=== PATIENT | male | born 1960 | race Caucasian/White ===

== ENCOUNTER → 2019-09-18 | Outpatient (CLI) | payer MEDICARE ==
--- NOTE | 2019-09-18 11:22 | ER RDC ASSESSMENT REPORT ---
Intake - In the Last 14 days Have you traveled outside [place]?: No Have you been in close contact with someone CONFIRMED: No Worked in Healthcare?: No - Symptoms Subjective Fever([place] feverish): Yes Chills: Yes Muscule Aches: Yes Runny Nose: Yes Sore Throat: Yes Cough (New or worsening chronic cough): Yes Shortness of breath: Yes Nausea or Vomiting: No Headache: Yes Abdominal Pain: No Diarrhea(3 or more loose stools in last 24 hours): Yes - Do you have any of the following Chronic lung disease: Asthma or emphysema or COPD: No Cystic Fibrosis: No Diabetes Comment: Borderline diabetic High Blood Pressure: Yes Cardiovascular Disease: Yes Cardiovascular Disease Comment: hypertension Chronic Kidney Disease: No Chronic Liver Disease: Yes Chronic Liver Disease Comment: cirrhosis Chronic blood disorder like Sickle Cell Disease: Yes Chronic Blood Disorder Comment: low platelet count Weak immune system due to disease or medication: Yes Neurologic condition that limits movement: No Developmental delay - Moderate to Severe: No Recent (within past 2 weeks) or current : No Morbid Obesity (>100 pounds over ideal weight): No - Objective Vital Signs: 6'1", 224 lbs Temperature: 98.1 F Pulse Rate: 98 Respiratory Rate: 18 Blood Pressure: 143/67 O2 Sat by Pulse Oximetry: 98 Objective: Given above, testing performed: strep negative flu A positive flu B negative COVID 19 sent to lab Disposition: Home; Selfcare General - General Chief Complaint: Flu Symptoms Time Seen by Provider: 09/18/19 11:43 Mode of Arrival: Ambulatory Information source: Patient - HPI Onset: Last week Severity: Moderate Exacerbated by: Denies Relieved by: Denies Similar symptoms previously: No Recently seen / treated by doctor: No Notes: 59-year-old male presents to [facility] clinic for COVID-19 testing. Patient does have significant medical history of borderline diabetes, hypertension, cirrhosis, and low platelet count. Patient and spouse report onset of symptoms 09/16/2019. He is complaining of moderate fever (T-max 100.5), fatigue, chills, myalgia, rhinorrhea, sore throat, cough, shortness of breath with coughing but not at rest and not with activity, headache, and one episode of diarrhea this morning. Patient states he has been coughing up clear to white phlegm, this was blood- tinged x1 but they think it was related to the harshness of his coughing. He does experience moderate shortness of breath with these coughing episodes. - Related Data Allergies/Adverse Reactions: No Known Allergies Allergy (Unverified 09/18/19 11:46) Home Medications: Spironolactone, folic acid, pantoprazole Past Medical History - General Information source: Patient - Social History Smoking Status: Former Smoker Lives with: Spouse/Significant other - Past Medical History Cardiac Medical History: Reports: Hx Hypertension Pulmonary Medical History: Reports: None EENT Medical History: Reports: None Neurological Medical History: Reports: None Endocrine Medical History: Reports: Other Other: Borderline diabetes Malignancy Medical History: Reports None GI Medical History: Reports: Hx Cirrhosis Musculoskeletal Medical History: Reports None Skin Medical History: Reports None Psychiatric Medical History: Reports: None Traumatic Medical History: Reports: None Infectious Medical History: Reports: None Surgical Hx: Other - Banding of esophageal varices x2 Physical Exam - General General appearance: Appears well In distress: None Notes: PHYSICAL EXAMINATION: GENERAL: Well-appearing and in no acute distress. HEAD: Atraumatic, normocephalic. EYES: sclera anicteric, conjunctiva are normal. ENT: maxillary and frontal sinuses tender to palpation, + nasal congestion. Moist mucous membranes. NECK: Normal range of motion, supple without lymphadenopathy LUNGS: CTAB and equal. No wheezes rales or rhonchi. HEART: Regular rate and rhythm without murmurs ABDOMEN: Soft, nontender, normal bowel sounds, no guarding. EXTREMITIES: Normal range of motion, no pitting edema. No cyanosis. NEUROLOGICAL: Cranial nerves grossly intact. Normal speech. PSYCH: Normal mood, normal affect. SKIN: Warm, Dry, normal turgor, no rashes or lesions noted Patient Education/Counseling Counseling/Education: Patient presents with upper respiratory symptoms worrisome for possible Covid 19. Patient does not have emergency worrying symptoms such as difficulty breathing, shortness of breath, chest pain, pressure, confusion or cyanosis. Patient appears suitable for discharge as vital signs are stable and patient is nontoxic in appearance. Suspect sinus infection- he will contact PCP for follow-up. Good return precautions have been discussed with patient, patient verbalized understanding and is agreeable with discharge plan of care at this time. Patient was positive for Influenza A. Prescription for Xofluza 80 mg PO x 1 dose called in to pharmacy by RN. Patient and spouse advised of diagnosis, treatment plan, S/S to monitor for, and precautions. Guidance for worsening S/SX: As a person under investigation for Covid 19, the [facility], division of public health advises you to adhere to the following guidance until your test results are reported to you. If your test result is positive, you will receive additional information from your provider and your local health department at that time. Remain at home until you are cleared by the health provider or public health authorities. Keep a log of visitors to your home, notify any visitors to your home of your isolation status. If you plan to move to a new address or leave the [facility], notify the local health department in your County. Call your doctor or seek care if you have an urgent medical need. Before seeking medical care, call ahead to get instructions from the provider before arriving at the medical office clinic or hospital. Notify them that you are being tested for the virus that causes Covid 19 so that arrangements can be made, as necessary, to prevent transmission to others in the healthcare setting. Next, notify the local health department in your county. If a medical emergency arises and you need to call 911, inform the first responders that you are being tested for the virus that causes Covid 19. Next, notify the local health department in your county. RDC Discharge - Discharge Clinical Impression: Influenza A, Encounter for screening laboratory testing for COVID-19 virus Condition: Good Disposition: Home; Selfcare
[2019-09-18 11:46] VITALS: BP 143/67
[2019-09-18 12:11] LABS: A TYPE INFLUENZA AG POSITIVE (NEGATIVE); B INFLUENZA AG NEGATIVE (NEGATIVE)
== END ==
LOC: RDC 10:54
PROVIDERS: ATTEND Registered Nurse
DX: I12.9 Hypertensive chronic kidney disease with stage 1 through stage 4 chronic kidney disease, or unspecified chronic kidney disease (principal); N18.3 Chronic kidney disease, stage 3 (moderate); R80.9 Proteinuria, unspecified
CPT/HCPCS: 36415; 87070; 87880; 87804; U0003; C9803; 87635; 99201